=== PATIENT | female | born 1980 | race Caucasian/White ===

== ENCOUNTER 2020-04-02 13:46 | Emergency (ER) | payer BC, MEDICAID ==
[~2020-04-02] VITALS: Ht 172.7 cm; Wt 72.6 kg
[2020-04-02 13:52] VITALS: BP 136/75
--- NOTE | 2020-04-02 14:28 | NUR ---
web services manager consult requested by switch house operator Gener. Patient is a 40 year-old female. Patient was lying in bed and remained in bed throughout this assessment. SW introduced themselves and patient stated "Why are you here? I don't need your help." SW attempted to gather collateral information and patient stated "I took drugs willingly, I am having a reaction. I will call someone to come pick me up when I am free to go. I do not need you. " MILLI informed switch house operator Gener of this interaction. MILLI provided copy of homeless community resources in patient's medical chart and informed tooth cutter clutchRamone Manzo. MILLI remains available for all needs regarding this patient.
--- NOTE | 2020-04-02 15:17 | NUR ---
PATIENT REFUSED SWAB.
--- NOTE | 2020-04-02 15:18 | NUR ---
LEFT WITHOUT DISCHARGE INSTRUCTIONS.
== END 2020-04-02 15:19 | disposition home or self-care (01) ==
LOC: ER 13:47
DX: Z59.0 Homelessness (principal); Z20.828 Contact with and (suspected) exposure to other viral communicable diseases
CPT/HCPCS: 99283; C9803; U0003